=== PATIENT | male | born 1945 | race Caucasian/White ===

== ENCOUNTER 2020-07-11 05:13 | Observation (INO) ==
--- NOTE | 2020-06-28 14:25 | PAT Medication Instructions ---
Medication Instructions Date of Service June 28, 2020 Home Medications Medication Instructions Recorded Wheelchair (Manual or Powered) #1 ea 05/25/20 Wheeled Walker #1 ea 05/25/20 ibuprofen 200 - 600 mg PO UD PRN lisinopril [Zestril] 20 mg PO QAM atorvastatin 20 mg PO QPM ASK your surgeon for instructions ibuprofen 200 - 600 mg PO UD PRN DO NOT take the morning of surgery lisinopril [Zestril] 20 mg PO QAM Take evening before surgery atorvastatin 20 mg PO QPM Other Notes If you have any questions please call us at [phone] or [phone] or [phone] or [phone]
--- NOTE | 2020-06-30 13:08 | Anesthesiology Consultation ---
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 Uses PPE. Patient had a coworker test positive approximately 06/09 (had limited contact with coworker/approximately "10 words a week" from a distance. Coworker is a rocket motor mechanic and patient drove car that was worked on by rocket motor mechanic). Patient seen at [facility] 2 weeks after coworker tested positive- No current COVID-19 related symptoms. Surgeon arranging preop COVID testing. Awaiting results. Chart Review Chart Review: Acceptable Risk for Surgery and Patient seen in Pre Admission Testing Teaching & Discussion Pre-Anesthesia Teaching/Discussion Notes: Instructed NPO after midnight before surgery,except medications with 15 cc of water. Medication instructions provided according to the [facility] guidelines. History Surgery Operation Date: 07/11/20 10:40 Proposed Procedures p Left Total Hip Arthroplasty - Natanael Cline MD Height/Weight Height: 5 ft 10 in Weight: 88.6 kg Allergies Allergy/AdvReac Type Severity Reaction Status Date / Time No Known Allergies Allergy Unverified 06/21/20 13:12 Medications Home Medications Medication Instructions Recorded Confirmed Last Taken ibuprofen 200 - 600 mg PO UD PRN 06/06/19 06/21/20 Unknown lisinopril [Zestril] 20 mg PO QAM 06/06/19 06/21/20 Unknown Wheelchair (Manual or Powered) #1 ea 05/25/20 Unknown Wheeled Walker #1 ea 05/25/20 Unknown atorvastatin 20 mg PO QPM 06/21/20 06/21/20 Unknown Past Medical History Medical History High blood pressure High cholesterol Osteoarthritis of left hip Exercise / Class Metabolic Activity II 4-5 Yardwork/Stairs/Walk up hill (one flight of stairs (no chest pain, no sob)) Past Surgical History Surgical History History of Achilles tendon repair left () History of colonoscopy History of tonsillectomy History of total left knee replacement (TKR) History of total right hip arthroplasty Past Anesthesia History No Family Hx of Anesthesia Complications and Other (urinary retention post-op left TKA and right ALYCE) History of PONV No Hx of PONV and No Hx of Motion Sickness Social History Smoking Status: Former smoker Do You Dip or Chew Tobacco: No Smoking End Date: Quit 40 YRS AGO Hx Alcohol Use: Yes Alcohol type: beer and hard liquor alcohol intake frequency: 0-2 drinks per day Alcohol Intake Frequency Comment: 2 drinks/day substance use type: does not use Review of Systems Patient denies chest pain, shortness of breath, dyspnea on exertion, fever, chills, cough, wheezing, palpitations. Physical Exam Vital Signs VITALS BP 144/88 P 78 TEMP 98.6 SP02 93%RA RESP 16 PHYSICAL Full neck and c-spine range of motion. Full TMJ range of motion. TMD 3 finger breaths Mallampati Score 3 Dentition: missing molars, + several crowns Lungs: clear throughout to auscultation Cardiac: regular rate and rhythm, no murmurs noted Spine: normal Carotid arteries: negative bruit Extremities: no edema Testing Laboratory Results 06/30/20 13:25 06/30/20 13:25 PT 10.2 Seconds (9.0-12.0) 06/30/20 13:25 INR 1.0 (0.9-1.1) 06/30/20 13:25 APTT 24.8 Seconds (21.0-31.0) 06/30/20 13:25 Blood Type A Positive 06/30/20 13:25 Antibody Screen NEGATIVE 06/30/20 13:25 Electrocardiogram Date: 06/30/20 SR with first degree AVB at 79bpm. Chest X-Ray Date: 06/30/20 FINDINGS: The heart is the upper limits of normal in size. There is no failure. There is no focal pulmonary consolidation. There are no pleural effusions.[A small metallic density projects over the base of the right neck. IMPRESSION: No active disease in the chest.
--- NOTE | 2020-06-30 13:50 | XRay Report ---
XR chest Pre-admission PA/Lat CLINICAL HISTORY: Preoperative chest COMPARISON STUDY: No previous studies for comparison. FINDINGS: The heart is the upper limits of normal in size. There is no failure. There is no focal pul monary consolidation. There are no pleural effusions.[A small metallic density projects over the base of the right neck. IMPRESSION: No active disease in the chest. ACT 112: Negative or not required by law. Electronically signed by: Dung Robison M.D. 06/30/2020 1:49 PM
--- NOTE | 2020-06-30 14:12 | Electrocardiogram Report ---
Test Reason : Blood Pressure : / mmHG Vent. Rate : 079 BPM Atrial Rate : 079 BPM P-R Int : 210 ms QRS Dur : 098 ms QT Int : 388 ms P-R-T Axes : 007 -05 027 degrees QTc Int : 444 ms Sinus rhythm with 1st degree A-V block Otherwise normal ECG No previous ECGs available Confirmed by Vik Campa ([id number]) on 06/30/2020 2:11:56 PM Referred By: Natanael Cline Confirmed By:Vik Campa
[2020-06-30 14:22] LABS: Basophils # (auto) 0.04 K/uL (0-0.2); Basophils % (auto) 0.6 %; Eosinophils # (auto) 0.16 K/uL (0-0.5); Eosinophils % (auto) 2.5 %; Hematocrit (blood only) 41.7 % (42-52); Hemoglobin 14.4 g/dL (14.0-18.0); Immature Granulocytes # (auto) 0.01 K/uL (0.00-0.02); Immature Granulocytes % (auto) 0.2 %; Lymphocytes # (auto) 1.73 K/uL (1.2-3.4); Lymphocytes % (auto) 26.7 %; Mean Corpuscular Hemoglobin 33.9 pg (25-34); Mean Corpuscular Hgb Conc 34.5 g/dL (32-36); Mean Corpuscular Volume 98.1 fL (80-100); Mean Platelet Volume 9.5 fL (7.4-10.4); Monocytes # (auto) 0.43 K/uL (0.11-0.59); Monocytes % (auto) 6.6 %; Neutrophils % (auto) 63.4 %; Platelet Count 225 K/uL (130-400); RDW Coefficient of Variation 13.1 % (11.5-14.5); RDW Standard Deviation 46.6 fL (36.4-46.3); Red Blood Count 4.25 M/uL (4.7-6.1); White Blood Count 6.47 K/uL (4.8-10.8)
[2020-06-30 14:38] LABS: Partial Thromboplastin Ratio 0.9; Partial Thromboplastin Time 24.8 Seconds (21.0-31.0); Prothrombin Time 10.2 Seconds (9.0-12.0)
[2020-06-30 14:56] LABS: Blood Urea Nitrogen 24 mg/dl (7-18); C Reactive Protein < 0.29 mg/dl (0-0.29); Calcium 9.1 mg/dl (8.5-10.1); Carbon Dioxide 25 mmol/L (21-32); Chloride 106 mmol/L (98-107); Creatinine Clr Calc Pharmacy 71.9 ml/min; Est GFR (African American) 84.5; Est GFR (Non-African American) 72.9; Glucose 92 mg/dl (70-99); Potassium 3.6 mmol/L (3.5-5.1); Sodium 139 mmol/L (136-145)
[2020-07-11] MEDS ORDERED: TRANEXAMIC ACID 1,000 MG IV SCH (06:00)
[2020-07-11] MEDS ORDERED: GABAPENTIN 300 MG CAP PO SCH (06:00)
[2020-07-11] MEDS ORDERED: FAMOTIDINE 20 MG TAB PO SCH (06:00)
[2020-07-11] MEDS ORDERED: LR 60ML/HR IV SCH (06:00)
[2020-07-11] MEDS ORDERED: CEFAZOLIN 2000MG 2,000 MG/15 ML SYR IV SCH (06:00)
[2020-07-11] MEDS ORDERED: ROPIVACAINE 0.5% HCL/PF 150 MG, BUPIVACAINE 0.5% MPF 30 ML, EPINEPHrine 30MG/30ML (OR U... INSTIL SCH (06:00)
[2020-07-11] MEDS ORDERED: ACETAMINOPHEN 500 MG TAB PO SCH (06:00)
[2020-07-11] MEDS ORDERED: LR 500ML BOLUS, THEN 15ML/HR IV SCH (06:00)
[2020-07-11] MEDS ORDERED: PROPOFOL IV EMULSION 10 MG/ML 20 ML VIAL IV ONE (06:19)
[2020-07-11] MEDS ORDERED: ONDANSETRON INJ 2 MG/ML 2 ML VIAL ONE (06:19)
[2020-07-11] MEDS ORDERED: GLYCOPYRROLATE 0.2 MG/ML VIAL ONE (06:19)
[2020-07-11] MEDS ORDERED: LIDOCAINE HCL 2% 2 ML VIAL/AMP(20MG/ML) INFIL ONE (06:19)
[2020-07-11] MEDS ORDERED: DEXAMETHASONE SOD INJ 4 MG/ML VIAL ONE (06:19)
[2020-07-11] MEDS ORDERED: MIDAZOLAM HCL 1 MG/ML 2ML VIAL ONE (06:20)
[2020-07-11] MEDS ORDERED: MoRPHine SULFATE PF 1 MG/ML 10 ML AMP/VIAL ONE (06:30)
[2020-07-11] MEDS ORDERED: BUPIVACAINE 0.5 % 5 MG/1 ML PF 10ML VIAL ONE (06:33)
[2020-07-11] MEDS ORDERED: BACITRACIN INJ 50,000 UNIT VIAL ONE (06:48)
[2020-07-11] MEDS ORDERED: BUPIVACAINE 0.5 % 5 MG/1 ML MPF 30ML VIAL ONE (06:48)
--- NOTE | 2020-07-11 06:48 | History & Physical Bridge Note ---
Date of Service July 11, 2020 History & Physical Bridge Note I have examined the patient, reviewed the History & Physical and in the interval since the performance of the History & Physical I have noted the following changes of clinical significance: no changes noted
[2020-07-11] MEDS ORDERED: EPINEPHrine INJ 1 MG/ML AMP ONE (06:49)
[2020-07-11] MEDS ORDERED: DiphenhydrAMINE HCL 50 MG/ML VIAL IV PRN (06:53)
[2020-07-11] MEDS ORDERED: MoRPHine SULFATE PF 1 MG/ML 10 ML AMP/VIAL INT SPINAL ONE (06:53)
[2020-07-11] MEDS ORDERED: NALOXONE HCL 1 MG in SODIUM CHLORIDE 0.9% 1000ML 1,000 ML IV PRN (06:53)
[2020-07-11] MEDS ORDERED: MEPERIDINE HCL 25 MG/ML CARP/VIAL IV PRN (06:53)
[2020-07-11] MEDS ORDERED: NALOXONE HCL 0.08 MG in SYRINGE 1.8 ML IV PRN (06:53)
[2020-07-11] MEDS ORDERED: ePHEDrine sulfate 50 MG/ML AMP IV PRN (06:53)
[2020-07-11] MEDS ORDERED: NALOXONE HCL 0.4 MG/1 ML VIAL/CARP IV PRN ×2 (06:53→09:46)
[2020-07-11] MEDS ORDERED: LACTATED RINGER'S 500 ML IV PRN (06:53)
[2020-07-11] MEDS ORDERED: ONDANSETRON INJ 2 MG/ML 2 ML VIAL IV PRN (06:53)
[2020-07-11] MEDS ORDERED: DC INTRASPINAL MORPHINE SCH (07:00)
[2020-07-11] MEDS ORDERED: SODIUM CHLORIDE 0.9% 1000ML 1,000 ML IV SCH (07:00)
[2020-07-11] MEDS ORDERED: NO NARCOTICS OR SEDATIVES SCH (07:00)
[2020-07-11] MEDS ORDERED: PHENYLEPHRINE 100MCG/ML 5ML SYR ONE (07:37)
--- NOTE | 2020-07-11 08:14 | Post Operative Brief Note ---
PG Immediate Post Op with CF Date of Surgery July 11, 2020 Pre & Post Diagnosis Operation Date: 07/11/20 07:00 Pre-Op Diagnosis: Left Hip Advanced Degenerative Joint Disease Post-Op Diagnosis: Left Hip Advanced Degenerative Joint Disease I identified the patient and participated in the time-out.: Yes Procedure Operation Date: 07/11/20 07:00 Actual Procedures p Left Total Hip Arthroplasty--Uncemented(Left) - Natanael Cline MD Surgeon Natanael Cline MD Metal Fence Erector Amrik, PAC Estimated Blood Loss 300 Findings Consistent with Post-Op Diagnosis Fluids 1000 cc Specimens Specimen Description: A. Left Femoral Head Drains Jeff Catheter Anesthesia Type Spinal MAC Complications none Disposition Accompanied Patient To Recovery: Yes Disposition: Recovery Room
--- NOTE | 2020-07-11 08:26 | Operative Report ---
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 He had a fairly large anterior acetabular osteophyte. He had flattening and deformity of the femoral head. He had osteophytes around the femoral head. He did have a fairly large offset to his proximal femur. Fluids 1000 cc. Specimens Left femoral head sent for pathology. Drains None. Complications none Disposition Accompanied Patient To Recovery: Yes Disposition: Recovery Room Indications Patient is a 74-year-old gentleman who is had a host of orthopedic issues in the past and has right hip replaced 12 years ago in the left knee about 5 years ago. Over the past several years he is developed increased pain discomfort in his left hip. He has been through extensive conservative treatment which became less successful over time. Was really hindering his quality of life and elected proceed with left total hip arthroplasty. Description of Procedure Operative implants consist of: 1. Biomet G7 size 54 mm acetabular shell. 2. Biomet 6.5 cancellus acetabular screws 1 of 35 mm in length and 1 of 20 mm in length. 3. Stovall: 1St Grade Teacher. 4. Highly cross-linked polyethylene liner with a 54 mm outer diameter, 36 mm inner diameter with a garcia placed inferior and posterior. 5. Maddi karate size 11 KLA femoral stem. 6. +12/36 mm ceramic articular ball. The patient was taken to the operating room identified and placed on the operating table supine position but all contractors were properly padded. IV antibiotics tried by anesthesia team. A spinal anesthetic had been implemented in the holding area. A Jeff catheter was placed in sterile fashion. The patient was then placed in the right lateral decubitus position. Axillary roll was placed. A Stulberg hip positioner was used for position. The left hip and leg were then prepped and draped in usual sterile fashion. A posterior lateral approach to the left hip was then performed to a curvilinear incision centered over the greater trochanter. Sharp dissection with carried out through the subcutaneous tissues down to the level of the IT band and glu teal fascia but the IT band gluteal fascia incised longitudinally in line with the skin incision. The underlying greater trochanteric bursa was excised. The piriformis and external rotators and posterior capsule were then released from the posterior aspect of the hip joint as a single layer. Great care was taken throughout the procedure to protect the sciatic nerve at all times. The hip was internally rotated and dislocated. Femoral neck osteotomy cut was made with a final cut about a centimeter above the lesser trochanter. Femoral head was removed and sent for pathology. The femur was retracted anteriorly. Attention drawn the acetabulum. The acetabular labrum was excised. The pulmonary fat was excised. Sequential reaming the acetabular was then performed again with a size 45 and progressing up to 53. I did just entered the stem with a 54 reamer. A 54 mm Biomet G7 acetabular shell was then placed in about 40 degrees lateral opening and 20 degrees of anteversion. It was fixed with two 6.5 cancellus acetabular screws. A large anterior osteophyte was removed. Trial liner was placed. Attention drawn the femur. The proximal femur was entered with a cookie-cutter followed by canal finder. Broached beginning size 8 and progressing up to 11. Got excellent fit and 11. Calcar reamer was used smooth and off the calcar. Then trialed the hip. He had quite a bit of soft tissue laxity due to his natural offset. Therefore used a +12 length head. In addition, he was fairly short on this side compared to the opposite side and when to make up some of his leg length inequality. With the soft tissue laxity we did place garcia inferior and posterior to maximize his stability. The hip was fully stable full extension and external rotation and flexion to 90 degrees in rotation to about [address] I elected to place these implants. All trial implants were removed. An apex eliminator was placed. A cross-link polyethylene liner with a garcia placed inferior and posterior were then impacted in position. A Maddi size 12 KLA femoral stem was impacted in position. A +12/36 mm ceramic articular ball was placed. Hip was located and once again found to be stable. Attention drawn toward closing. The wound was irrigated with copious amounts of pulsatile lavage solution. I did inject locally with 60 cc of absent Marcaine with epinephrine. The posterior capsule external rotators were then repaired in a single layer through drill holes in the posterior trochanter with #2 Tycron suture. The IT band gluteal fascia then closed in 1 PDS suture running fashion the subcutaneous tissues then closed 2 layers with the deep layer #1 Vicryl suture in the subcutaneous tissues with 2-0 Dexon suture in a buried interrupted fashion. Skin was closed skin shaka. Legs then cleaned dried a sterile dressing composed Xeroform, 4 x 4's, ABD pad, and foam tape were applied. Patient then transferred to the recovery room in stable condition. Patient tolerated the procedure well and there were no complications. Angel Rowley, my physician head start assistant teacher, was present for the entire procedure. His assistance was essential and required for proper patient positioning, prepping and draping, surgical exposure, performing the technical details of the operation, placement of the implants, closure of the wound, and placement of the sterile bandage. I attest to the content of the Intraoperative Record and any orders documented therein. Any exceptions are noted below.
--- NOTE | 2020-07-11 08:50 | XRay Report ---
SINGLE VIEW PELVIS; SINGLE VIEW LEFT HIP CLINICAL HISTORY: Postoperative examination. FINDINGS: An AP portable view of the hips and pelvis with a crosstable lateral portable view of the l ower hip are compared to study dated 11/08/2019. A bipolar left hip arthroplasty is in near-anatomic al ignment. At least 2 cortical lag screws transfix the acetabular cup. No acute fracture is identified. There are expected postoperative changes overlying the left hip including skin clips, subcutaneous g as common and soft tissue swelling. A right hip arthroplasty is unchanged in position. Sclerotic garcia ge is noted in the sacroiliac joints. IMPRESSION: Expected postoperative findings status post left hip arthroplasty. No acute fracture is s een. ACT 112: Negative or not required by law. Electronically signed by: Abilio Billings M.D. 07/11/2020 8:49 AM
--- NOTE | 2020-07-11 09:10 | Anesthesiology Progress Note ---
Date of Service July 11, 2020 Anesthesia Post Procedure Vital Signs Vital Signs: Temp Pulse Pulse Resp BP BP Pulse Ox 07/11/20 08:55 74 17 118/71 97 07/11/20 08:45 76 17 119/70 97 07/11/20 08:35 80 17 109/77 96 07/11/20 08:25 80 19 113/69 97 07/11/20 08:15 97.3 F L 83 16 85/52 L 95 07/11/20 06:03 97.9 F 88 18 168/104 H Transfer of Care Handoff Completed per policy Notes Mental Status: alert / awake / arousable and participated in evaluation Patient Amnestic to Procedure: Yes Nausea / Vomiting: adequately controlled Pain: adequately controlled Airway Patency, RR, SpO2: stable & adequate BP & HR: stable & adequate Hydration State: stable & adequate Neuraxial Anesthesia: was administered and sensory block is resolving Anesthetic Complications: no major complications apparent and Pt Satisfied with anesthetic care
[2020-07-11] MEDS ORDERED: bisacodyL 10 MG SUPP PR PRN (09:46)
[2020-07-11] MEDS ORDERED: MAGNESIUM HYDROXIDE SUSP 30 ML UDC PO PRN (09:46)
[2020-07-11] MEDS ORDERED: METOCLOPRAMIDE HCL INJ 5 MG/ML 2 ML VIAL IV PRN (09:46)
[2020-07-11] MEDS ORDERED: ALUMINUM/MAGNESIUM SUSP 30 ML UDC PO PRN (09:46)
[2020-07-11] MEDS ORDERED: TAMSULOSIN HCL 0.4 MG CAP PO PRN (09:46)
[2020-07-11] MEDS: SODIUM CHLORIDE 0.9% 1000ML 1,000 ML IV SCH ×2 (09:51→17:23)
[2020-07-11] MEDS: lisinopriL 20 MG TAB PO SCH (10:54)
[2020-07-11] MEDS: DOCUSATE SODIUM 100 MG CAP PO SCH ×2 (10:54→20:20)
[2020-07-11] MEDS: MULTIVITAMIN TAB PO SCH (10:54)
[2020-07-11] MEDS: KETOROLAC TROMETHAMINE 15 MG/ML VIAL IV SCH ×3 (12:07→22:52)
[2020-07-11] MEDS: ASPIRIN 81 MG ECTAB PO SCH ×2 (13:32→20:20)
[2020-07-11] MEDS: ACETAMINOPHEN 500 MG TAB PO SCH ×2 (13:32→22:05)
[2020-07-11] MEDS ORDERED: TRANEXAMIC ACID / 0.7% NACL 1,000 MG/100 ML BAG IV SCH (14:17)
[2020-07-11] MEDS: CEFAZOLIN 2000MG 2,000 MG/15 ML SYR IV SCH ×2 (15:08→22:05)
[2020-07-11] MEDS: FERROUS GLUCONATE 324 MG TAB PO SCH (17:24)
[2020-07-11] MEDS: ASCORBIC ACID 500 MG TAB PO SCH (17:24)
[2020-07-11] MEDS ORDERED: SENNA 8.6 MG TAB PO SCH (21:00)
[2020-07-11] MEDS ORDERED: ATORVASTATIN 20 MG TAB PO SCH (21:00)
[2020-07-12] MEDS ORDERED: HYDROmorphone INJ 0.5 MG/0.5 ML SYR IV PRN (00:53)
[2020-07-12] MEDS ORDERED: ONDANSETRON INJ 2 MG/ML 2 ML VIAL IV PRN (00:53)
[2020-07-12] MEDS ORDERED: TRAMADOL HCL 50 MG TABLET PO PRN (00:53)
[2020-07-12] MEDS: SODIUM CHLORIDE 0.9% 1000ML 1,000 ML IV SCH (01:53)
[2020-07-12] MEDS: KETOROLAC TROMETHAMINE 15 MG/ML VIAL IV SCH ×2 (05:15→11:48)
[2020-07-12] MEDS: ACETAMINOPHEN 500 MG TAB PO SCH (05:15)
[2020-07-12 05:49] LABS: Basophils # (auto) 0.01 K/uL (0-0.2); Basophils % (auto) 0.2 %; Eosinophils # (auto) 0.04 K/uL (0-0.5); Eosinophils % (auto) 0.6 %; Hematocrit (blood only) 31.9 % (42-52); Hemoglobin 11.1 g/dL (14.0-18.0); Immature Granulocytes # (auto) 0.02 K/uL (0.00-0.02); Immature Granulocytes % (auto) 0.3 %; Lymphocytes # (auto) 1.37 K/uL (1.2-3.4); Mean Corpuscular Hemoglobin 33.8 pg (25-34); Mean Corpuscular Hgb Conc 34.8 g/dL (32-36); Mean Corpuscular Volume 97.3 fL (80-100); Mean Platelet Volume 8.9 fL (7.4-10.4); Monocytes # (auto) 0.74 K/uL (0.11-0.59); Monocytes % (auto) 11.3 %; Neutrophils # (auto) 4.35 K/uL (1.4-6.5); Neutrophils % (auto) 66.6 %; Platelet Count 180 K/uL (130-400); RDW Coefficient of Variation 12.9 % (11.5-14.5); RDW Standard Deviation 45.4 fL (36.4-46.3); Red Blood Count 3.28 M/uL (4.7-6.1); White Blood Count 6.53 K/uL (4.8-10.8)
[2020-07-12 06:18] LABS: BUN Creatinine Ratio 26.6 (10-20); Calcium 8.1 mg/dl (8.5-10.1); Creatinine Clr Calc Pharmacy 62.3 ml/min; Est GFR (African American) 71.5; Est GFR (Non-African American) 61.7; Potassium 3.8 mmol/L (3.5-5.1)
--- NOTE | 2020-07-12 09:33 | Progress Notes ---
DATE: 07/12/2020 SUBJECTIVE: A 74-year-old gentleman postop day 1 from a left hip replacement. He is doing quite well. Really not having any pain. Had good night. He has been walking around. No chest pain or shortness of breath. Not feeling dizzy or lightheaded. OBJECTIVE: VITAL SIGNS: Temperature 36.5. Vital signs stable. GENERAL: Shows a pleasant, middle-aged male. He is sitting up in bed, looks quite comfortable this morning. LUNGS: Clear to auscultation. HEART: Regular rate and rhythm. ABDOMEN: Soft, nontender, nondistended. EXTREMITIES: Grossly neurovascularly intact except as follows. Examination of the left hip reveals the dressing to be clean, dry and intact. Leg lengths are equal. Thigh is soft and supple. He is neurologically intact. He can dorsiflex and plantarflex his foot appropriately. LABORATORY DATA: Hemoglobin 11.1. Hematocrit 31.9. Electrolytes are stable. ASSESSMENT: A 74-year-old gentleman postop day 1 from a left hip replacement, doing quite well. His hip is located. He is neurologically intact. His pain is controlled. PLAN: 1. DVT prophylaxis including thigh-high TEDs, SCDs, and aspirin twice a day. 2. PT/OT. Weight bear as tolerated. Left total hip protocol. 3. Pain control, doing well with current pain regimen. 4. Disposition: Plan to discharge to home with some home health, possibly later today if he does okay in therapy.
[2020-07-12] MEDS: ASCORBIC ACID 500 MG TAB PO SCH (10:08)
[2020-07-12] MEDS: FERROUS GLUCONATE 324 MG TAB PO SCH (10:09)
[2020-07-12] MEDS: DOCUSATE SODIUM 100 MG CAP PO SCH (10:09)
[2020-07-12] MEDS: ASPIRIN 81 MG ECTAB PO SCH (10:09)
[2020-07-12] MEDS: MULTIVITAMIN TAB PO SCH (10:09)
[2020-07-12] MEDS: lisinopriL 20 MG TAB PO SCH (10:09)
--- NOTE | 2020-07-19 14:53 | Discharge Summary ---
Date of Service July 19, 2020 Admission HPI Per Admitting Provider Documented in the H & P Admission Exam (Per Admitting) Constitutional Documented in the H & P Discharge Data Consultations 07/12/20 08:00 Consult Case Management - Discharge Planning Routine Procedures Performed Operation Date: 07/11/20 07:00 Actual Procedures p Left Total Hip Arthroplasty--Uncemented(Left) - Natanael Cline MD Hospital Course (1) Status post total hip replacement, left: This patient is a 74 year old male admitted on 07/11/20 and underwent total hip arthroplasty. He tolerated the procedure well and there were no complications. Transferred to the PACU post op and later to the orthopedic floor for further care. He was given ancef for antibiotic prophylaxis. He was also given JESSEE stockings, SCDs, and aspirin for DVT prophylaxis. Hemoglobin, hematocrit, and vital signs were monitored during his hospital stay and remained stable. Did not require any blood transfusions. There were no complications during his hospital stay. By post op day #1 the patient was tolerating a regular diet, pain was reasonably controlled with oral pain medicine, and he was participating in physical therapy. On post op day #1 the patient was discharged home and set up with home health care. He was given printed discharge instructions including prescriptions for extra strength tylenol, aspirin, and tramadol. Continue physical therapy, weight bearing as tolerated. Continue JESSEE stockings. Total hip precautions. Follow up approximately 2 weeks post op or sooner if there are problems or concerns. Coding Level of Care Code None Diagnoses Status post total hip replacement, left Z96.642
== END 2020-07-12 12:10 | disposition home health service (06) ==
LOC: ASU 05:13 → 3E 05:13